=== PATIENT | female | born 1955 | race Caucasian/White ===

== ENCOUNTER 2019-10-14 10:09 | Emergency (ER) | payer OTHER ==
[~2019-10-14] VITALS: Ht 152.4 cm; Wt 64.0 kg
[2019-10-14 10:14] VITALS: BP 135/75
[2019-10-14] MEDS ORDERED: ACETAMINOPHEN 325MG TABLET PO ONE (10:30)
== END 2019-10-14 13:22 | disposition home or self-care (01) ==
LOC: ER 10:09
DX: M54.12 Radiculopathy, cervical region (principal); M25.511 Pain in right shoulder; M19.90 Unspecified osteoarthritis, unspecified site; I10 Essential (primary) hypertension; Z87.828 Personal history of other (healed) physical injury and trauma; V43.52XA Car driver injured in collision with other type car in traffic accident, initial encounter; Y93.89 Activity, other specified; Y92.488 Other paved roadways as the place of occurrence of the external cause
CPT/HCPCS: 73030; 99284